=== PATIENT | male | born 1950 | race Caucasian/White ===

== ENCOUNTER 2019-02-05 14:03 | Observation (INO) ==
[2019-02-05] MEDS ORDERED: Sodium Chloride 0.9% 1,000 ML PRIMARY IV ONE (14:19)
[2019-02-05] MEDS ORDERED: ONDANSETRON 4 MG/2 ML VIAL IVP ONE (14:19)
[2019-02-05] MEDS ORDERED: PANTOPRAZOLE IV 40 MG VIAL IVP ONE (14:19)
[2019-02-05 14:56] LABS: BASOPHILS # (AUTO) 0.03 10*3/UL; BASOPHILS % (AUTO) 0.8 % (0-1); EOSINOPHILS # (AUTO) 0.08 10*3/UL; EOSINOPHILS % (AUTO) 2.2 % (0-8); Hematocrit [HCT] 47.3 % (42.0-52.0); Hemoglobin [HGB] 15.5 g/dL (14.0-18.0); LYMPHOCYTES # (AUTO) 0.65 10*3/uL; MEAN CORPUSCULAR HGB CONC 32.8 g/dL (33-37); MEAN CORPUSCULAR VOLUME 93.5 FL (80-90); MEAN PLATELET VOLUME 9.7 FL (7.4-12.2); MONOCYTES # (AUTO) 0.42 10*3/UL (0.3-0.8); MONOCYTES % (AUTO) 11.4 % (5-15); NEUTROPHILS # (AUTO) 2.49 10*3/UL; NEUTROPHILS % (AUTO) 67.9 % (50-80); RED BLOOD COUNT 5.06 10^6/uL (4.70-6.10)
[2019-02-05 14:59] LABS: PLATELET MORPHOLOGY COMMENT NORMAL MORPHOLOGY (NORM); RBC MORPHOLOGY COMMENT NORMAL MORPHOLOGY (NORM); WBC MORPHOLOGY COMMENT NORMAL MORPHOLOGY (NORM)
[2019-02-05 15:08] LABS: BLOOD UREA NITROGEN 16 mg/dL (7-22); BUN/CREATININE RATIO 13.33 (6-20); SERUM ALBUMIN 4.6 g/dL (3.5-4.8)
[2019-02-05 19:42] LABS: WBC, BODY FLUID 0.573 10*3/uL
[2019-02-05] MEDS ORDERED: DOCUSATE 100 MG CAPSULE PO PRN (20:27)
[2019-02-05] MEDS ORDERED: LIDOCAINE W/ SODIUM BICARB 0.5 ML SYR SUBD PRN (20:27)
[2019-02-05] MEDS ORDERED: ONDANSETRON 4 MG/2 ML VIAL IVP PRN (20:27)
[2019-02-05] MEDS ORDERED: CALCIUM CARBONATE 500 MG (TUMS) CHEWABLE TABLET PO PRN (20:27)
[2019-02-05] MEDS ORDERED: ACETAMINOPHEN 325 MG TABLET PO PRN (20:27)
[2019-02-06 06:47] VITALS: BP 131/81; RESP 22; TEMP 97; O2SAT 93
[2019-02-06] MEDS ORDERED: PANTOPRAZOLE 40 MG TABLET PO SCH (07:00)
[2019-02-06] MEDS ORDERED: FUROSEMIDE 40 MG TABLET PO SCH (07:00)
[2019-02-06] MEDS: Spironolactone Tab 50 MG TAB PO SCH ×2 (07:21→09:36)
[2019-02-06] MEDS ORDERED: Influenza 19-20 Vaccine (6mo+) 60 MCG/0.5 ML SYRINGE IM ONE (07:52)
[2019-02-06] MEDS ORDERED: LEFLUNOMIDE 20 MG PO SCH (09:00)
[2019-02-09 16:11] LABS: SOURCE, BODY FLUID ALBUMIN PERITONEAL
== END 2019-02-06 10:05 | disposition home or self-care (01) ==
LOC: ER 14:03 → MED/SURG 14:03
PROVIDERS: ADMIT Internal Medicine; ATTEND Internal Medicine